=== PATIENT | female | born 1985 | race American Indian/Alaskan Native ===

== ENCOUNTER 2021-04-29 13:04 | Observation (INO) | payer SELFPAY ==
[2021-04-29] MEDS ORDERED: NITROGLYCERIN 2% OINT 1 GM TP ONE (13:33)
[2021-04-29] MEDS ORDERED: ONDANSETRON 4 MG/2 ML INJ IV ONE (13:33)
[2021-04-29] MEDS ORDERED: fentaNYL 100 MCG/2 ML INJ IV ONE (13:33)
[2021-04-29] MEDS ORDERED: ASPIRIN 325 MG TAB PO ONE (13:33)
--- NOTE | 2021-04-29 13:35 | Emergency Department Report ---
HPI - General Chief Complaint: Chest Pain Time Seen by Provider: 04/29/21 13:18 - HPI HPI: Room 24 The patient is a 35-year-old female presenting with a chief complaint of chest pain. The patient states this morning at 10: 00 she developed left-sided chest pain while standing and cooking. Patient describes the pain as a tightness and squeezing that is intermittent in nature associated with shortness of breath and diaphoresis. Patient denies nausea/vomiting or fever. The patient states she is never had a stress test or cardiac catheterization. The patient took 324 mg of aspirin prior to arrival ED Past Medical Hx - Past Medical History Previous Medical History?: Yes Hx Seizures: Yes - Family History Family history: no significant - Social History Smoking Status: Current Every Day Smoker (1/2 pack/day) Substance Use Type: None (Denies illicit drug use), Alcohol (Occasional) - Medications Home Medications: Home Medications Medication Instructions Recorded Confirmed Last Taken Type Amoxicillin [Trimox CAP] 1,000 mg PO Q8H #42 capsule 02/01/15 Unknown Rx Ibuprofen [Motrin] 600 mg PO Q8H PRN #30 tablet 02/01/15 Unknown Rx traMADoL [Ultram] 50 mg PO Q6HR PRN #14 tablet 02/01/15 Unknown Rx Cyclobenzaprine [Flexeril] 10 mg PO TID PRN #14 tablet 09/18/18 Unknown Rx HYDROcodone/APAP 5-325 [[place] 1 - 2 each PO Q6HR PRN #30 tablet 09/18/18 Unknown Rx 5/325] ED Review of Systems ROS: Stated complaint: CHEST PAIN Other details as noted in HPI Constitutional: diaphoresis. denies: fever Eyes: denies: eye pain ENT: denies: throat pain Respiratory: shortness of breath Cardiovascular: chest pain Endocrine: no symptoms reported Gastrointestinal: denies: nausea, vomiting Genitourinary: denies: dysuria Musculoskeletal: denies: back pain Neurological: denies: headache Physical Exam - Physical Exam Physical Exam: GENERAL: The patient is well-developed well-nourished female lying on stretcher not appearing to be in acute distress. [] HEENT: Normocephalic. Atraumatic. Extraocular motions are intact. Patient has moist mucous membranes. NECK: Supple. Trachea midline CHEST/LUNGS: Clear to auscultation. There is no respiratory distress noted. HEART/CARDIOVASCULAR: Regular. There is no tachycardia. There is no gallop rub or murmur. ABDOMEN: Abdomen is soft, nontender. Patient has normal bowel sounds. There is no abdominal distention. SKIN: There is no rash. There is no edema. There is no diaphoresis. NEURO: The patient is awake, alert, and oriented. The patient is cooperative. The patient has no focal neurologic deficits. The patient has normal speech. GCS 15 MUSCULOSKELETAL: There is no evidence of acute injury. ED Medical Decision Making - Lab Data Result diagrams: 04/29/21 13:46 04/29/21 13:46 - Differential Diagnosis ACS, pericarditis, PE, GERD Critical care attestation.: If time is entered above; I have spent that time in minutes in the direct care of this critically ill patient, excluding procedure time. ED Disposition Clinical Impression: Chest pain Disposition: OP ADMIT IP TO THIS HOSP Is pt being admited?: Yes Does the pt Need Aspirin: Yes Condition: Stable Instructions: Nonspecific Chest Pain, Adult Time of Disposition: 15:18 (Hospitalist paged (Dr. Mauricio)) Heart Score - HEART Score History: Highly suspicious EKG: Non-specific Age: < 45 Risk factors: 1-2 risk factors Troponin: < normal limit HEART Score: 4 - EKG Read Time Time EKG Completed: 13:42 EKG Read Time: 13:46
[2021-04-29 14:02] LABS: Basophils # (Auto) 0.1 K/mm3 (0.0-0.1); Basophils % (Auto) 0.7 % (0.0-1.8); Eosinophils # (Auto) 0.1 K/mm3 (0.0-0.4); Eosinophils % (Auto) 0.7 % (0.0-4.3); Hematocrit 43.1 % (30.3-42.9); Hemoglobin 14.8 gm/dl (10.1-14.3); Lymphocytes # (Auto) 1.8 K/mm3 (1.2-5.4); Mean Corpuscular HGB Conc 34 % (30-34); Mean Corpuscular Volume 99 fl (79-97); Monocytes # (Auto) 0.4 K/mm3 (0.0-0.8); Monocytes % (Auto) 5.2 % (0.0-7.3); Platelet Count 281 K/mm3 (140-440); Red Blood Count 4.36 M/mm3 (3.65-5.03); Red Cell Distribution Width 13.8 % (13.2-15.2)
--- NOTE | 2021-04-29 14:58 | XRay Report ---
CHEST 1 VIEW 04/29/2021 1:53 PM INDICATION / CLINICAL INFORMATION: chest pain. COMPARISON: None available. FINDINGS: SUPPORT DEVICES: None. HEART / MEDIASTINUM: No significant abnormality. LUNGS / PLEURA: No significant pulmonary or pleural abnormality. No pneumothorax. ADDITIONAL FINDINGS: No significant additional findings. IMPRESSION: 1. No acute findings. Signer Name: Romeo Stack MD Signed: 04/29/2021 2:53 PM Workstation Name: [id number]
[2021-04-29 15:05] LABS: Creatine Kinase MB 8.4 ng/mL (0.0-4.0)
[2021-04-29 15:06] LABS: Blood Urea Nitrogen 9 mg/dL (7-17); Calcium 9.6 mg/dL (8.4-10.2); Hemolysis Index 5
[2021-04-29 15:08] LABS: BUN/Creatinine Ratio 13
[2021-04-29 15:30] VITALS: BP 116/75
--- NOTE | 2021-05-02 09:11 | Electrocardiograph Report ---
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
== END 2021-04-29 15:35 | disposition left against medical advice (07) ==
LOC: ED 13:04 → 4A 15:20
PROVIDERS: ADMIT Internal Medicine; ATTEND Internal Medicine
DX: R07.89 Other chest pain (principal); R56.9 Unspecified convulsions; F17.210 Nicotine dependence, cigarettes, uncomplicated
CPT/HCPCS: 36415; 71045; 80048; 82550; 82553; 84484; 84703; 85025; 85379; 93005; 96374; 96375; 99285; G0378; J2405; J3010

== ENCOUNTER 2021-08-14 21:21 | Emergency (ER) | payer SELFPAY ==
[2021-08-14 23:39] VITALS: BP 100/70
[2021-08-15 00:53] LABS: Bilirubin,Urine NEG (Negative); Blood,Urine SM (Negative); Color,Urine Yellow (Yellow); Mucus,Urine FEW /HPF; Protein,Urine <15 mg/dL mg/dL (Negative); Urobilinogen,Urine < 2.0 mg/dL (<2.0)
--- NOTE | 2021-08-15 01:32 | Emergency Department Report ---
ED Female HPI - General Chief complaint: Abdominal Pain Stated complaint: INFECTION Time Seen by Provider: 08/15/21 00:36 Source: patient Mode of arrival: Ambulatory Limitations: No Limitations - History of Present Illness Initial comments: 36-year-old female [facility] emerge department complaining of pelvic discomfort with dysuria. She was seen at [facility] and was advised she had a urinary tract infection but states she was not giving any medications. She also reports having an ovarian cyst which is not getting any medications not yet follow-up w ith [facility]. She reports no fever, chills, sweats. No hemoptysis no hematemesis hematochezia. No nausea, no vomiting MD Complaint: dysuria, pelvic pain - Related Data Previous Rx's Medication Instructions Recorded Last Taken Type Amoxicillin [Trimox CAP] 1,000 mg PO Q8H #42 capsule 02/01/15 Unknown Rx Ibuprofen [Motrin] 600 mg PO Q8H PRN #30 tablet 02/01/15 Unknown Rx traMADoL [Ultram] 50 mg PO Q6HR PRN #14 tablet 02/01/15 Unknown Rx Cyclobenzaprine [Flexeril] 10 mg PO TID PRN #14 tablet 09/18/18 Unknown Rx HYDROcodone/APAP 5-325 [[place] 1 - 2 each PO Q6HR PRN #30 tablet 09/18/18 Unknown Rx 5/325] Ketorolac [Toradol] 10 mg PO Q6H PRN #15 tablet 08/15/21 Unknown Rx Nitrofurantoin [place]/M-Cryst 100 mg PO Q12HR #20 capsule 08/15/21 Unknown Rx [Macrobid CAP] Phenazopyridine [Pyridium] 200 mg PO BID PRN #10 tab 08/15/21 Unknown Rx Allergies Allergy/AdvReac Type Severity Reaction Status Date / Time No Known Allergies Allergy Verified 02/01/15 05:38 ED Review of Systems ROS: Stated complaint: INFECTION Other details as noted in HPI Comment: All other systems reviewed and negative ED Past Medical Hx - Past Medical History Previous Medical History?: No Hx Seizures: Yes - Surgical History Past Surgical History?: No - Social History Smoking Status: Current Every Day Smoker (1/2 pack/day) Substance Use Type: None (Denies illicit drug use), Alcohol (Occasional) - Medications Home Medications: Home Medications Medication Instructions Recorded Confirmed Last Taken Type Amoxicillin [Trimox CAP] 1,000 mg PO Q8H #42 capsule 02/01/15 Unknown Rx Ibuprofen [Motrin] 600 mg PO Q8H PRN #30 tablet 02/01/15 Unknown Rx traMADoL [Ultram] 50 mg PO Q6HR PRN #14 tablet 02/01/15 Unknown Rx Cyclobenzaprine [Flexeril] 10 mg PO TID PRN #14 tablet 09/18/18 Unknown Rx HYDROcodone/APAP 5-325 [[place] 1 - 2 each PO Q6HR PRN #30 tablet 09/18/18 Unknown Rx 5/325] Ketorolac [Toradol] 10 mg PO Q6H PRN #15 tablet 08/15/21 Unknown Rx Nitrofurantoin [place]/M-Cryst 100 mg PO Q12HR #20 capsule 08/15/21 Unknown Rx [Macrobid CAP] Phenazopyridine [Pyridium] 200 mg PO BID PRN #10 tab 08/15/21 Unknown Rx ED Physical Exam - General Limitations: No Limitations General appearance: alert, in no apparent distress - Head Head exam: Present: atraumatic, normocephalic - Eye Eye exam: Present: normal appearance, PERRL, EOMI Pupils: Present: normal accommodation - ENT ENT exam: Present: normal exam, normal orophraynx, mucous membranes moist, TM's normal bilaterally - Neck Neck exam: Present: normal inspection, full ROM - Respiratory Respiratory exam: Present: normal lung sounds bilaterally. Absent: respiratory distress, wheezes, rales, rhonchi, chest wall tenderness, accessory muscle use, decreased breath sounds - Cardiovascular Cardiovascular Exam: Present: regular rate, normal rhythm. Absent: bradycardia, tachycardia, irregular rhythm, systolic murmur, diastolic murmur, rubs, gallop - GI/Abdominal GI/Abdominal exam: Present: soft, tenderness, normal bowel sounds. Absent: distended, guarding, hyperactive bowel sounds, hypoactive bowel sounds, organomegaly, mass, bruit - Extremities Exam Extremities exam: Present: normal inspection, normal capillary refill - Back Exam Back exam: Present: normal inspection. Absent: CVA tenderness (R), CVA tenderness (L) - Neurological Exam Neurological exam: Present: alert, oriented X3, CN II-XII intact, normal gait - Psychiatric Psychiatric exam: Present: normal affect, normal mood - Skin Skin exam: Present: warm, dry, intact, normal color. Absent: rash ED Course Vital Signs 08/14/21 23:35 Temperature 98.2 F Pulse Rate 74 Respiratory 15 Rate Blood Pressure 100/70 [Left] O2 Sat by Pulse 100 Oximetry ED Medical Decision Making - Medical Decision Making This patient presents to the emergency department with symptoms consistent with acute uncomplicated cystitis. No systemic symptoms. Not septic. She is well- appearing. Low suspicion for acute pyelonephritis given the lack of fever, CVA tenderness, or systemic features. Low suspicion for for kidney stone or infected stone. Not in age range for and her history and and presentation are complicated. No no indications for labs or imaging at this time. Critical care attestation.: If time is entered above; I have spent that time in minutes in the direct care of this critically ill patient, excluding procedure time. ED Disposition Clinical Impression: UTI (urinary tract infection) Disposition: HOME / SELF CARE / HOMELESS Is pt being admited?: No Does the pt Need Aspirin: No Condition: Stable Instructions: Abdominal Pain (ED), Urinary Tract Infection, Adult, and Urinary Tract Infection, Urodynamic Testing, Urinalysis Test Prescriptions: Nitrofurantoin [place]/M-Cryst [Macrobid CAP] 100 mg PO Q12HR #20 capsule Phenazopyridine [Pyridium] 200 mg PO BID PRN #10 tab PRN Reason: dysuria Ketorolac [Toradol] 10 mg PO Q6H PRN #15 tablet PRN Reason: Pain Referrals: [facility] [Provider Group] - 3-5 Days
== END 2021-08-15 02:38 | disposition home or self-care (01) ==
LOC: ED 21:21
DX: N39.0 Urinary tract infection, site not specified (principal)
CPT/HCPCS: 81001; 87086; 99283

== ENCOUNTER 2021-09-29 00:51 | Emergency (ER) | payer SELFPAY ==
[2021-09-29] MEDS ORDERED: IBUPROFEN 800 MG TAB PO ONE (01:00)
[2021-09-29 03:54] LABS: Bilirubin,Urine Negative (Negative); Blood,Urine Negative (Negative); Color,Urine Yellow (Yellow); Protein,Urine <15 mg/dL mg/dL (Negative)
[2021-09-29 03:55] LABS: Mucus,Urine Few /HPF; RBC,Urine < 1.0 /HPF (0.0-6.0); Urobilinogen,Urine < 2.0 mg/dL (<2.0); WBC,Urine < 1.0 /HPF (0.0-6.0)
--- NOTE | 2021-09-29 04:13 | Emergency Department Report ---
ED General Adult HPI - General Chief complaint: Urogenital-Female Stated complaint: CYST RUPTURED Time Seen by Provider: 09/29/21 01:43 Source: patient Mode of arrival: Ambulatory Limitations: No Limitations - History of Present Illness Initial comments: Patient 36-year-old female who presents for back pain radiating to right lower extremity. Patient denies fall injury or trauma. There is no dysuria frequency urgency or hematuria. Patient had patient has no history of renal stones. Pain is described at 4/10 exacerbated by movement. Pain is relieved by nothing tried. Is been no fevers no chills no paralysis no numbness no tingling no loss or decrease in bowel or bladder function. Severity scale (0 -10): 5 - Related Data Previous Rx's Medication Instructions Recorded Last Taken Type Amoxicillin [Trimox CAP] 1,000 mg PO Q8H #42 capsule 02/01/15 Unknown Rx Ibuprofen [Motrin] 600 mg PO Q8H PRN #30 tablet 02/01/15 Unknown Rx traMADoL [Ultram] 50 mg PO Q6HR PRN #14 tablet 02/01/15 Unknown Rx Cyclobenzaprine [Flexeril] 10 mg PO TID PRN #14 tablet 09/18/18 Unknown Rx HYDROcodone/APAP 5-325 [[place] 1 - 2 each PO Q6HR PRN #30 tablet 09/18/18 Unknown Rx 5/325] Ketorolac [Toradol] 10 mg PO Q6H PRN #15 tablet 08/15/21 Unknown Rx Nitrofurantoin [place]/M-Cryst 100 mg PO Q12HR #20 capsule 08/15/21 Unknown Rx [Macrobid CAP] Phenazopyridine [Pyridium] 200 mg PO BID PRN #10 tab 08/15/21 Unknown Rx Cyclobenzaprine [Flexeril] 10 mg PO TID #30 tablet 09/29/21 Unknown Rx Naproxen 500 mg PO BID #30 tablet 09/29/21 Unknown Rx Allergies Allergy/AdvReac Type Severity Reaction Status Date / Time No Known Allergies Allergy Verified 02/01/15 05:38 ED Review of Systems ROS: Stated complaint: CYST RUPTURED Other details as noted in HPI Constitutional: denies: chills, fever Eyes: denies: eye pain, eye discharge, vision change ENT: denies: ear pain, throat pain Respiratory: denies: cough, shortness of breath, wheezing Cardiovascular: denies: chest pain, palpitations Endocrine: no symptoms reported Gastrointestinal: denies: abdominal pain, nausea, diarrhea Genitourinary: denies: urgency, dysuria, discharge Musculoskeletal: as per HPI, myalgia Skin: denies: rash, lesions Neurological: denies: headache, weakness, paresthesias Psychiatric: denies: anxiety, depression Hematological/Lymphatic: denies: easy bleeding, easy bruising ED Past Medical Hx - Past Medical History Hx Seizures: Yes - Social History Smoking Status: Current Every Day Smoker (1/2 pack/day) Substance Use Type: None (Denies illicit drug use), Alcohol (Occasional) - Medications Home Medications: Home Medications Medication Instructions Recorded Confirmed Last Taken Type Amoxicillin [Trimox CAP] 1,000 mg PO Q8H #42 capsule 02/01/15 Unknown Rx Ibuprofen [Motrin] 600 mg PO Q8H PRN #30 tablet 02/01/15 Unknown Rx traMADoL [Ultram] 50 mg PO Q6HR PRN #14 tablet 02/01/15 Unknown Rx Cyclobenzaprine [Flexeril] 10 mg PO TID PRN #14 tablet 09/18/18 Unknown Rx HYDROcodone/APAP 5-325 [[place] 1 - 2 each PO Q6HR PRN #30 tablet 09/18/18 Unknown Rx 5/325] Ketorolac [Toradol] 10 mg PO Q6H PRN #15 tablet 08/15/21 Unknown Rx Nitrofurantoin [place]/M-Cryst 100 mg PO Q12HR #20 capsule 08/15/21 Unknown Rx [Macrobid CAP] Phenazopyridine [Pyridium] 200 mg PO BID PRN #10 tab 08/15/21 Unknown Rx Cyclobenzaprine [Flexeril] 10 mg PO TID #30 tablet 09/29/21 Unknown Rx Naproxen 500 mg PO BID #30 tablet 09/29/21 Unknown Rx ED Physical Exam - General Limitations: No Limitations General appearance: alert, in no apparent distress - Head Head exam: Present: atraumatic, normocephalic - Eye Eye exam: Present: normal appearance, PERRL, EOMI Pupils: Present: normal accommodation - ENT ENT exam: Present: mucous membranes moist, TM's normal bilaterally. Absent: normal external ear exam - Neck Neck exam: Present: normal inspection, full ROM, lymphadenopathy. Absent: tenderness, meningismus, thyromegaly - Respiratory Respiratory exam: Present: normal lung sounds bilaterally, rhonchi. Absent: respiratory distress, wheezes, rales, stridor - Cardiovascular Cardiovascular Exam: Present: regular rate, normal rhythm, normal heart sounds. Absent: systolic murmur, diastolic murmur, rubs, gallop - GI/Abdominal GI/Abdominal exam: Present: soft, normal bowel sounds - Rectal Rectal exam: Present: deferred - Extremities Exam Extremities exam: Present: normal inspection, full ROM. Absent: tenderness, no rmal capillary refill - Back Exam Back exam: Present: normal inspection, full ROM. Absent: tenderness, CVA tenderness (R), CVA tenderness (L) - Neurological Exam Neurological exam: Present: alert, oriented X3, CN II-XII intact, normal gait, reflexes normal. Absent: motor sensory deficit - Psychiatric Psychiatric exam: Present: normal affect, normal mood - Skin Skin exam: Present: warm, dry, intact, normal color. Absent: rash ED Course Vital Signs 09/29/21 00:54 Temperature 98.3 F Pulse Rate 89 Respiratory 14 Rate Blood Pressure 100/61 [Right] O2 Sat by Pulse 97 Oximetry ED Medical Decision Making - Lab Data UA normal there is been no fall injury or trauma. Pain is improved with medication given in ED plan NSAIDs, muscle relaxant, moist heat therapy, follow- up with your doctor in 2 to 3 days. Patient verbalized agreement and understanding with discharge plan patient DC'd home in stable condition at this time. Critical care attestation.: If time is entered above; I have spent that time in minutes in the direct care of this critically ill patient, excluding procedure time. ED Disposition Clinical Impression: Low back strain Qualifiers: Encounter type: initial encounter Qualified Code(s): S39.012A - Strain of muscle, fascia and tendon of lower back, initial encounter Disposition: HOME / SELF CARE / HOMELESS Is pt being admited?: No Does the pt Need Aspirin: No Condition: Stable Instructions: Lumbar Sprain, Low Back Sprain or Strain Rehab-SportsMed Additional Instructions: Take medication as prescribed, use moist heat therapy as directed, follow-up with your doctor in 2 to 3 days. Return to emergency department if symptoms worsen. Prescriptions: Cyclobenzaprine [Flexeril] 10 mg PO TID #30 tablet Naproxen 500 mg PO BID #30 tablet Referrals: LAINE THOMPSON MD [Staff Physician] - 3-5 Days Forms: Work/School Release Form(ED) Time of Disposition: 04:19
[2021-09-29 04:26] VITALS: BP 107/75
== END 2021-09-29 04:29 | disposition home or self-care (01) ==
LOC: ED 00:51
DX: S39.012A Strain of muscle, fascia and tendon of lower back, initial encounter (principal); F17.210 Nicotine dependence, cigarettes, uncomplicated; Z72.89 Other problems related to lifestyle; Z79.899 Other long term (current) drug therapy; Y93.89 Activity, other specified; Y92.488 Other paved roadways as the place of occurrence of the external cause; Y99.8 Other external cause status
CPT/HCPCS: 81001; 99283

== ENCOUNTER 2022-01-05 16:41 | Emergency (ER) | payer SELFPAY | END 2022-01-05 19:50 | disposition left against medical advice (07) | LOC: ED 16:41 | DX: R10.9 Unspecified abdominal pain (principal); Z53.21 Procedure and treatment not carried out due to patient leaving prior to being seen by health care provider ==

== ENCOUNTER 2022-04-19 07:10 | Emergency (ER) | payer SELFPAY ==
[2022-04-19] MEDS ORDERED: ASPIRIN 325 MG TAB PO ONE ×2 (07:25→12:00)
[2022-04-19 08:25] LABS: Basophils # (Auto) 0.1 K/mm3 (0.0-0.1); Basophils % (Auto) 0.7 % (0.0-1.8); Eosinophils # (Auto) 0.1 K/mm3 (0.0-0.4); Eosinophils % (Auto) 0.8 % (0.0-4.3); Hematocrit 45.1 % (30.3-42.9); Hemoglobin 15.3 gm/dl (10.1-14.3); Lymphocytes % (Auto) 22.2 % (13.4-35.0); Mean Corpuscular HGB Conc 34 % (30-34); Mean Corpuscular Volume 97 fl (79-97); Monocytes # (Auto) 0.5 K/mm3 (0.0-0.8); Monocytes % (Auto) 5.3 % (0.0-7.3); Platelet Count 274 K/mm3 (140-440); Red Blood Count 4.67 M/mm3 (3.65-5.03); Red Cell Distribution Width 13.3 % (13.2-15.2)
[2022-04-19 08:51] LABS: Albumin 4.6 g/dL (3.9-5); BUN/Creatinine Ratio 5; Blood Urea Nitrogen 4 mg/dL (7-17); Calcium 9.6 mg/dL (8.4-10.2); Hemolysis Index 5
[2022-04-19 08:54] LABS: Alanine Aminotransferase < 5 units/L (7-56)
--- NOTE | 2022-04-19 09:13 | XRay Report ---
CHEST 2 VIEWS INDICATION: chest pain. COMPARISON: 03/30/2021. FINDINGS: Support devices: None. Heart: Within normal limits. Lungs/Pleura: No acute air space or interstitial disease. No significant pleural effusion. IMPRESSION: No acute findings. Signer Name: John Johnson MD Signed: 04/19/2022 9:09 AM Workstation Name: [id number]
[2022-04-19] MEDS ORDERED: HYDROcodone/ACETAMINOPHEN 5-325 MG TAB PO ONE (12:07)
--- NOTE | 2022-04-19 12:12 | Emergency Department Report ---
ED Chest Pain HPI - General Chief Complaint: Chest Pain Stated Complaint: CHEST PAIN Time Seen by Provider: 04/19/22 10:55 Source: patient Mode of arrival: Ambulatory Limitations: No Limitations - History of Present Illness Initial Comments: 36-year-old female no significant past medical history reports to the ER with complaints of left sided chest pain after finding a reported bumps, lumps in her chest. Patient reports symptoms started yesterday. Patient denies shortness of breath at this time. Patient denies having a mammogram in the past. No dizziness, no weakness, no fatigue has been reported to this provider. No other acute symptoms reported. - Related Data Previous Rx's Medication Instructions Recorded Last Taken Type Amoxicillin [Trimox CAP] 1,000 mg PO Q8H #42 capsule 02/01/15 Unknown Rx Ibuprofen [Motrin] 600 mg PO Q8H PRN #30 tablet 02/01/15 Unknown Rx traMADoL [Ultram] 50 mg PO Q6HR PRN #14 tablet 02/01/15 Unknown Rx Cyclobenzaprine [Flexeril] 10 mg PO TID PRN #14 tablet 09/18/18 Unknown Rx HYDROcodone/APAP 5-325 [[place] 1 - 2 each PO Q6HR PRN #30 tablet 09/18/18 Unknown Rx 5/325] Ketorolac [Toradol] 10 mg PO Q6H PRN #15 tablet 08/15/21 Unknown Rx Nitrofurantoin Hendry/M-Cryst 100 mg PO Q12HR #20 capsule 08/15/21 Unknown Rx [Macrobid CAP] Phenazopyridine [Pyridium] 200 mg PO BID PRN #10 tab 08/15/21 Unknown Rx Cyclobenzaprine [Flexeril] 10 mg PO TID #30 tablet 09/29/21 Unknown Rx Naproxen 500 mg PO BID #30 tablet 09/29/21 Unknown Rx Allergies Allergy/AdvReac Type Severity Reaction Status Date / Time No Known Allergies Allergy Verified 02/01/15 05:38 Heart Score - HEART Score History: Slightly suspicious EKG: Normal Age: < 45 Risk factors: No known risk factors Troponin: < normal limit HEART Score: 0 - EKG Read Time Time EKG Completed: 07:25 EKG Read Time: 07:26 ED Review of Systems ROS: Stated complaint: CHEST PAIN Other details as noted in HPI Constitutional: denies: chills, fever Eyes: denies: eye pain, eye discharge, vision change ENT: denies: ear pain, throat pain Respiratory: denies: cough, shortness of breath, wheezing Cardiovascular: chest pain. denies: palpitations Endocrine: no symptoms reported Gastrointestinal: denies: abdominal pain, nausea, diarrhea Genitourinary: denies: urgency, dysuria, discharge Musculoskeletal: denies: back pain, joint swelling, arthralgia Skin: denies: rash, lesions Neurological: denies: headache, weakness, paresthesias Psychiatric: denies: anxiety, depression Hematological/Lymphatic: denies: easy bleeding, easy bruising ED Past Medical Hx - Past Medical History Previous Medical History?: Yes Hx Seizures: Yes - Social History Smoking Status: Current Every Day Smoker (1/2 pack/day) Substance Use Type: None (Denies illicit drug use), Alcohol (Occasional) - Medications Home Medications: Home Medications Medication Instructions Recorded Confirmed Last Taken Type Amoxicillin [Trimox CAP] 1,000 mg PO Q8H #42 capsule 02/01/15 Unknown Rx Ibuprofen [Motrin] 600 mg PO Q8H PRN #30 tablet 02/01/15 Unknown Rx traMADoL [Ultram] 50 mg PO Q6HR PRN #14 tablet 02/01/15 Unknown Rx Cyclobenzaprine [Flexeril] 10 mg PO TID PRN #14 tablet 09/18/18 Unknown Rx HYDROcodone/APAP 5-325 [[place] 1 - 2 each PO Q6HR PRN #30 tablet 09/18/18 Unknown Rx 5/325] Ketorolac [Toradol] 10 mg PO Q6H PRN #15 tablet 08/15/21 Unknown Rx Nitrofurantoin [place]ry/M-Cryst 100 mg PO Q12HR #20 capsule 08/15/21 Unknown Rx [Macrobid CAP] Phenazopyridine [Pyridium] 200 mg PO BID PRN #10 tab 08/15/21 Unknown Rx Cyclobenzaprine [Flexeril] 10 mg PO TID #30 tablet 09/29/21 Unknown Rx Naproxen 500 mg PO BID #30 tablet 09/29/21 Unknown Rx ED Physical Exam - General Limitations: No Limitations General appearance: alert, in no apparent distress - Head Head exam: Present: atraumatic, normocephalic - Eye Eye exam: Present: normal appearance - ENT ENT exam: Present: mucous membranes moist - Neck Neck exam: Present: normal inspection - Respiratory Respiratory exam: Present: normal lung sounds bilaterally. Absent: respiratory distress - Cardiovascular Cardiovascular Exam: Present: regular rate, normal rhythm, other (Left breast area has mass/lump present with tenderness.). Absent: systolic murmur, diastolic murmur, rubs, gallop - GI/Abdominal GI/Abdominal exam: Present: soft, normal bowel sounds - Extremities Exam Extremities exam: Present: normal inspection - Back Exam Back exam: Present: normal inspection - Neurological Exam Neurological exam: Present: alert, oriented X3 - Psychiatric Psychiatric exam: Present: normal affect, normal mood - Skin Skin exam: Present: warm, dry, intact, normal color. Absent: rash ED Course Vital Signs 04/19/22 04/19/22 07:21 14:55 Temperature 98.2 F Pulse Rate 71 74 Respiratory 16 18 Rate Blood Pressure 137/73 132/71 [Left] O2 Sat by Pulse 98 98 Oximetry ED Medical Decision Making - Lab Data Result diagrams: 04/19/22 07:44 04/19/22 07:44 - Radiology Data Radiology results: report reviewed, image reviewed [facility] [address] [place] [address] XRay Report Signed Patient: RAÚL TOUSSAINT MR#: [id number] : 1985 Acct:[id number] Age/Sex: 36 / F ADM Date: 04/19/22 Loc: ED Attending Dr: Ordering Physician: GARY BOWENS MD Date of Service: 04/19/22 Procedure(s): XR chest routine 2V Accession Number(s): [id number] cc: GARY BOWENS MD Fluoro Time In Minutes: CHEST 2 VIEWS INDICATION: chest pain. COMPARISON: 03/30/2021. FINDINGS: Support devices: None. Heart: Within normal limits. Lungs/Pleura: No acute air space or interstitial disease. No significant pleural effusion. IMPRESSION: No acute findings. Signer Name: John Johnson MD Signed: 04/19/2022 9:09 AM Workstation Name: [id number] Transcribed By: ES Dictated By: John Johnson MD Electronically Authenticated By: John Johnson MD Signed Date/Time: 04/19/22908 DD/ 7 TD/TT: - Medical Decision Making 36-year-old female with history of seizures reports to ER with left-sided chest pain due to breast mass present. The patient found yesterday. On physical exam left breast had lump like feeling to that with tenderness noted on examination. Labs and imaging has been ordered. CMPno acute process notedpotassium is 3.3 will give replacement while here in the ER. CBC with no acute process Troponin negative. Chest x-ray with no acute process noted in chest. EKG normal sinus rhythm no acute changes. Patient reports a decrease in chest discomfort patient reports feeling better. 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 Vital Signs 04/19/22 07:21 Temperature 98.2 F Pulse Rate 71 Respiratory 16 Rate Blood Pressure 137/73 [Left] O2 Sat by Pulse 98 Oximetry Labs 04/19/22 04/19/22 04/19/22 07:44 07:44 12:03 WBC 9.2 RBC 4.67 Hgb 15.3 H Hct 45.1 H MCV 97 MCH 33 H MCHC 34 RDW 13.3 Plt Count 274 Lymph % (Auto) 22.2 Hend[place] % (Auto) 5.3 Eos % (Auto) 0.8 Baso % (Auto) 0.7 Lymph # (Auto) 2.0 [place] # (Auto) 0.5 Eos # (Auto) 0.1 Baso # (Auto) 0.1 Seg Neutrophils % 71.0 H Seg Neutrophils # 6.5 Sodium 139 Potassium 3.3 L Chloride 104.3 Carbon Dioxide 20 L Anion Gap 18 BUN 4 L Creatinine 0.8 Estimated GFR > 60 BUN/Creatinine Ratio 5 Glucose 99 Calcium 9.6 Total Bilirubin 0.60 AST 14 ALT < 5 L Alkaline Phosphatase 61 Troponin T < 0.010 < 0.010 Total Protein 7.1 Albumin 4.6 Albumin/Globulin Ratio 1.8 Critical care attestation.: If time is entered above; I have spent that time in minutes in the direct care of this critically ill patient, excluding procedure time. ED Disposition Clinical Impression: Breast pain, left Breast mass, left Qualifiers: Breast mass location: unspecified quadrant Qualified Code(s): N63.20 - Unspecified lump in the left breast, unspecified quadrant Disposition: 01 HOME / SELF CARE / HOMELESS Is pt being admited?: No Condition: Stable Instructions: Breast Tenderness, Nonspecific Chest Pain, Adult Referrals: PRIMARY CARE, [Primary Care Provider] - 3-5 Days FATUMA HICKEY MD [Staff Physician] - 3-5 Days [facility] [Outside] - 3-5 Days [facility] [Outside] - 3-5 Days Time of Disposition: 14:14
[2022-04-19] MEDS ORDERED: POTASSIUM CHLORIDE ER 20 MEQ TAB PO ONE (14:15)
[2022-04-19 15:04] VITALS: BP 132/71
--- NOTE | 2022-04-20 17:44 | Electrocardiograph Report ---
[facility] Test Date: 2022-04-19 Test Time: 07:25:40 Pat Name: RAÚL TOUSSAINT Department: Room: Gender: F Carton Filler: KATALINA : 1985 Requested By: MINDY DEWITT Order Number: [id number] Reading MD: Rich Purvis Measurements Intervals [place] Rate: 70 P: 59 AL: 107 QRS: 25 QRSD: 82 T: 41 QT: 378 QTc: 408 Interpretive Statements Sinus arrhythmia Compared to ECG 04/29/2021 13:42:44 Sinus rate has increased Electronically Signed On 04-20-2022 17:44:35 EDT by Rich Purvis
== END 2022-04-19 15:06 | disposition home or self-care (01) ==
LOC: ED 07:10
DX: N64.4 Mastodynia (principal); N63.0 Unspecified lump in unspecified breast; R56.9 Unspecified convulsions; F17.200 Nicotine dependence, unspecified, uncomplicated; Z79.899 Other long term (current) drug therapy
CPT/HCPCS: 36415; 71046; 80053; 84484; 85025; 93005; 99284